=== PATIENT | female | born 1970 | race Caucasian/White ===

== ENCOUNTER → 2017-08-23 | Outpatient (CLI) | payer BC ==
[2014-09-26 12:40] VITALS: BMI 25.6
[~2017-08-23] MED LIST: CALC-845 PO; IOPAMIDOL 76% 75 ML INFUS BTL 75 ML ONE; MAGN400C PO; MULT-820 PO; OMEG-11 PO; drenamin
--- NOTE | 2017-08-23 16:46 | RADIOLOGY IMAGING REPORT ---
[place] [facility] [place] Rios : 1970 MR: [id number] V: [id number] EXAM DATE: [id number] ORDERING PHYSICIAN: ROSALINDA TALLEY TECHNOLOGIST: Location: [facility] - [place] Patient: Leslie Rios : 1970 Visit/Account:[id number] Date of Sevice: 08/23/2017 ABDOMEN/PELVIS WITH CONTRAST HISTORY: Left lower quadrant and suprapubic pain, narrow stools, recent history of hematochezia TECHNIQUE: Following administration of IV contrast contiguous axial images acquired through the abdom en/pelvis. Coronal and sagittal reformatting also performed. Dose Lowering Technique One of the following dose optimization techniques was utilized in the performance of this exam: Autom ated exposure control; adjustment of the mA and/or kV according to the patient's size; or use of an i terative reconstruction technique. Specific details can be referenced in the facility's radiology C T exam operational policy. CONTRAST: 75 mL Isovue-[id number] COMPARISON: None. FINDINGS: Visualized lung bases: Negative. Hepatobiliary: Gallbladder is contracted which may be related to a recent meal although clinical cor relation needed Spleen: Negative. Adrenals: Negative. Pancreas: Negative. Kidneys ureters or bladder: Negative. Genitalia: Negative. GI: There is a focal narrowing at the rectosigmoid junction best seen on axial image 128 of series 2 and coronal image 77 of series 3 . This could represent an area of spasm although an annular lesio n not totally excluded particularly in light of the clinical history. This mild diverticulosis left- sided colon although no CT evidence of acute diverticulitis. Vessels/spaces/nodes: Negative. Bones/soft tissues: No aggressive appearing bone lesions are seen Additional findings: None pertinent. IMPRESSION: Gallbladder is contracted which may be related to a recent meal although clinical correlation with me al history needed There is a focal narrowing at the rectosigmoid junction as described above. Although this could repr esent an area of spasm and annular lesion cannot be totally excluded particularly in light of the cli nical history. Colonoscopy is recommended for further evaluation Mild diverticulosis left-sided colon although no CT evidence of acute diverticulitis Report Dictated By: Alexa Fairbanks MD at 08/23/2017 4:33 PM Report E-Signed By: Alexa Fairbanks MD at 08/23/2017 4:42 PM WSN:[email or web address]
== END ==
LOC: CT 01:12
PROVIDERS: ATTEND Nurse Practitioner Family
DX: K63.89 Other specified diseases of intestine (principal); K57.30 Diverticulosis of large intestine without perforation or abscess without bleeding
CPT/HCPCS: 74177; Q9967

== ENCOUNTER → 2018-12-15 | Outpatient (CLI) | payer BC ==
[2014-09-26 12:40] VITALS: BMI 25.6
[~2018-12-15] MED LIST changes: -IOPAMIDOL 76% 75 ML INFUS BTL 75 ML ONE
--- NOTE | 2018-12-15 15:28 | RADIOLOGY IMAGING REPORT ---
FACILITY: [facility] PATIENT NAME: ESTELA PRAKASH : [id number] MR: [id number] V: [id number] EXAM DATE: ORDERING PHYSICIAN: ROSALINDA TALLEY TECHNOLOGIST: Petrona Lyles PROCEDURE: BILATERAL DIGITAL SCREENING MAMMOGRAM WITH CAD ASSISTED INTERPRETATION & 3D TOMOSYNTHESIS. REASON FOR STUDY: Screening. FAMILY HISTORY OF BREAST CANCER: Mother in her 70's & great maternal aunt in her 70's. BREAST PROCEDURES/TREATMENTS: None. COMPARISON: 09/06/13. VIEWS OBTAINED: Bilateral 2D & 3D full field CC & MLO projections. BREAST DENSITY: The breasts are heterogeneously dense which can obscure small masses. MAMMOGRAM FINDINGS: The parenchymal pattern has remained stable allowing for difference in mammographic technique & patient positioning. IMPRESSION: BIRADS 1: Negative. DIAGNOSTIC CATEGORY 1--NEGATIVE. RECOMMENDATIONS: ROUTINE MAMMOGRAM AND CLINICAL EVALUATION. Dictated by: Alexa Fairbanks M.D. on 12/15/2018 at 14:13 Transcribed by: SANTANA on 12/15/2018 at 14:20 Approved by: Alexa Fairbanks M.D. on 12/15/2018 at 15:23 [facility]
== END ==
LOC: MAMO 00:47
PROVIDERS: ATTEND Nurse Practitioner Family
DX: Z12.31 Encounter for screening mammogram for malignant neoplasm of breast (principal)
CPT/HCPCS: 77063; 77067